=== PATIENT | female | born 1985 | race Caucasian/White ===

== ENCOUNTER 2021-01-25 16:14 | Outpatient (CLI) | payer SELFPAY ==
--- NOTE | ~2021-01-25 | XR_ITS ---
EXAMINATION: XR chest 2V 01/25/2021 16:57 INDICATION: Dyspnea PROCEDURE: PA and lateral views of the chest COMPARISON: No prior studies for comparison. FINDINGS: The lungs are clear. The cardiomediastinal silhouette is within normal limits. There are no pleural effusions. There is no pneumothorax suspected. IMPRESSION: 1: NO ACUTE CARDIOPULMONARY DISEASE. Reviewed, dictated and finalized at location A.
--- NOTE | 2021-01-25 16:25 | ECG_ITS ---
Measurements Intervals [place] Rate: 54 P: 43 [place]: 135 QRS: 52 QRSD: 81 T: 34 QT: 401 QTc: 382 Interpretive Statements SINUS BRADYCARDIA BASELINE ARTIFACT- I, II, III, AVR, AVL, AVF BORDERLINE ECG Electronically Signed On 01-25-2021 20:26:57 CDT by Naldo Haque D.O.
== END 2021-01-25 16:15 | disposition home or self-care (01) ==
PROVIDERS: PCP Registered Nurse; Visit Provider Registered Nurse
DX: R06.00 Dyspnea, unspecified (principal)
CPT/HCPCS: 71046; 93005